=== PATIENT | female | born 1960 | race Caucasian/White ===

== ENCOUNTER 2018-02-21 12:19 | Day surgery (SDC) | payer MEDICARE, OTHER ==
[2018-02-20 10:24] LABS: ALBUMIN 3.7 g/dL (3.4-5.0); ANION GAP 4 mmol/L (5-15); CALCIUM 9.1 mg/dL (8.5-10.1); CHLORIDE 100 mmol/L (98-107)
[2018-02-20 10:28] LABS: ALANINE AMINOTRANSFERASE 19 U/L (12-78); ALKALINE PHOSPHATASE 63 U/L (45-117); BILIRUBIN,TOTAL 0.2 mg/dL (0.2-1.0); CREATININE 0.81 mg/dL (0.55-1.02); TOTAL PROTEIN 6.8 g/dL (6.4-8.2)
[2018-02-20 10:43] LABS: MICROSCOPIC INDICATED
[~2018-02-21] VITALS: Ht 154.9 cm; Wt 87.7 kg
[~2018-02-21 12:19] MED LIST: ALBU18HF INH; ALBU8.5H8 IH; BIOT25005 PO; CHOL5000 PO; CINN500C2 PO; DIAZ5TAB PO; FLUO20CA19 PO; FLUT16SP NAS; FLUT1BLS3 INH; FURO-92 PO; IPRA3AMP30 NEB; IPRA3AMP30 NPPB; LACT1CAP37 PO; LEVO150T5 PO; LEVO750T26 PO; LORA10TA3 PO; METF500T17 PO; METH750T87 PO; MULT-658 PO; PRED20TA PO; potassium chloride PO
[2018-02-21] MEDS ORDERED: LACTATED RINGERS 1,000 ML IV SCH (13:00)
[2018-02-21] MEDS ORDERED: FENTANYL PF 100 MCG/2ML ONE (13:05)
[2018-02-21] MEDS ORDERED: MIDAZOLAM 1 MG/ML, 2ML ONE (13:05)
[2018-02-21 13:07] VITALS: BP 137/84
[2018-02-21] MEDS ORDERED: ACETAMINOPHEN 325 MG TABLET PO PRN (13:30)
[2018-02-21] MEDS ORDERED: LORazepam 2 MG/ML, 1ML IVPush PRN (13:30)
[2018-02-21] MEDS ORDERED: LABETALOL 5MG/ML, 20ML IV PRN (13:30)
[2018-02-21] MEDS ORDERED: ALBUTEROL SULFATE 2.5 MG/3 ML NPPB PRN (13:30)
[2018-02-21] MEDS ORDERED: SCOPOLAMINE PATCH, 1.5MG PATCH.TD72 TD PRN (13:30)
[2018-02-21] MEDS ORDERED: METOCLOPRAMIDE 5 MG/ML, 2ML IV PRN (13:30)
[2018-02-21] MEDS ORDERED: hydrALAzine 20 MG/ML, 1ML IV PRN (13:30)
[2018-02-21] MEDS ORDERED: SUCCINYLCHOLINE 20 MG/ML, 10ML ONE (13:37)
[2018-02-21] MEDS ORDERED: PROPOFOL 10 MG/ML, 20ML ONE (13:37)
[2018-02-21] MEDS ORDERED: DEXAMETHASONE 4 MG/ML, 1ML ONE (13:37)
[2018-02-21] MEDS ORDERED: ROCURONIUM 10 MG/ML,10ML ONE (13:37)
[2018-02-21] MEDS ORDERED: ALBUTEROL SULFATE 200 PUFFS/8.5 GR INH ONE (13:37)
[2018-02-21] MEDS ORDERED: SUGAMMADEX 200 MG/2 ML IVPush ONE (14:20)
[2018-02-21] MEDS ORDERED: METOCLOPRAMIDE 5 MG/ML, 2ML ONE (15:00)
[2018-02-21] MEDS ORDERED: ONDANSETRON 2MG/ML, 2ML IVPush ONE (15:30)
== END 2018-02-21 16:25 | disposition home or self-care (01) ==
LOC: OUT 12:19 → EDSTATUS 15:30 → OUT 16:25
PROVIDERS: ATTEND Urology
DX: N20.0 Calculus of kidney (principal); E11.9 Type 2 diabetes mellitus without complications; J44.9 Chronic obstructive pulmonary disease, unspecified; Z87.891 Personal history of nicotine dependence; Z88.8 Allergy status to other drugs, medicaments and biological substances; Z79.84 Long term (current) use of oral hypoglycemic drugs; Z90.49 Acquired absence of other specified parts of digestive tract; Z90.710 Acquired absence of both cervix and uterus; Z98.890 Other specified postprocedural states
CPT/HCPCS: 36415; 50590; 80053; 81001; 82962; 87086; 93005; J0330; J1100; J2250; J2405; J2704; J2765; J3010; J7120